=== PATIENT | female | born 1975 | race Caucasian/White ===

== ENCOUNTER 2023-05-02 10:09 | Emergency (ER) | payer BC ==
[~2023-05-02] VITALS: Ht 157.5 cm; Wt 122.5 kg
[2023-05-02] MEDS ORDERED: ZESTORETIC 20-1 EAC1 (10:22)
== END 2023-05-02 12:36 | disposition home or self-care (01) ==
LOC: ER 10:09
DX: I10 Essential (primary) hypertension (principal); Z91.148 Patient's other noncompliance with medication regimen for other reason